=== PATIENT | female | born 2000 | race Caucasian/White ===

== ENCOUNTER 2022-05-30 09:26 | Outpatient (CLI) | payer OTHER, SELFPAY | END 2022-05-30 09:27 | disposition home or self-care (01) | LOC: LKVREF 10:38 | PROVIDERS: PCP Physician Assistant Medical; Visit Provider Physician Assistant | DX: N92.1 Excessive and frequent menstruation with irregular cycle (principal) | CPT/HCPCS: 84443 ==

== ENCOUNTER 2022-12-07 08:49 | Outpatient (CLI) | payer OTHER, SELFPAY ==
[2022-12-07 13:39] LABS: Cholesterol* 170 mg/dL (90-199); Triglycerides* 83 mg/dL (40-149)
[2022-12-07 13:40] LABS: HDL Cholesterol* 77 mg/dL (>=50); LDL Cholesterol Calculated 76 mg/dL (<100)
== END 2022-12-07 08:50 | disposition home or self-care (01) ==
LOC: LKVREF 08:50
PROVIDERS: PCP Physician Assistant Medical; Visit Provider Emergency Medicine
DX: Z00.00 Encounter for general adult medical examination without abnormal findings (principal); Z13.6 Encounter for screening for cardiovascular disorders
CPT/HCPCS: 80061

== ENCOUNTER 2023-12-06 15:39 | Outpatient (CLI) | payer OTHER, MEDICAID, SELFPAY | END 2023-12-06 15:40 | disposition home or self-care (01) | LOC: LKVREF 15:47 | PROVIDERS: PCP Emergency Medicine; Visit Provider Emergency Medicine | DX: Z01.419 Encounter for gynecological examination (general) (routine) without abnormal findings (principal); Z11.3 Encounter for screening for infections with a predominantly sexual mode of transmission; R87.610 Atypical squamous cells of undetermined significance on cytologic smear of cervix (ASC-US) | CPT/HCPCS: 87491; 87591 ==

== ENCOUNTER 2024-12-26 15:23 | Outpatient (CLI) | payer BC, SELFPAY ==
[2024-12-26 23:10] LABS: Chlamydia DNA Amplified* NOT DETECTED (No Detected); GC DNA Amplified* NOT DETECTED (No Detected)
== END 2024-12-26 15:24 | disposition home or self-care (01) ==
PROVIDERS: PCP Emergency Medicine; Visit Provider Emergency Medicine
DX: R87.612 Low grade squamous intraepithelial lesion on cytologic smear of cervix (LGSIL) (principal); Z11.3 Encounter for screening for infections with a predominantly sexual mode of transmission
CPT/HCPCS: 87491; 87591; 87624; 87625; 88141; 88142